=== PATIENT | female | born 1990 | race Caucasian/White ===

== ENCOUNTER 2019-03-30 12:12 | Emergency (ER) | payer SELFPAY ==
[2019-03-30] MEDS ORDERED: 0.9 % SODIUM CHLORIDE 1,000 ML BAG IV ONE (12:28)
[2019-03-30] MEDS ORDERED: ONDANSETRON HCL IV 4 MG/2 ML VIAL IV ONE (12:28)
--- NOTE | 2019-03-30 12:34 | Emergency Department Record ---
History of Present Illness - General Chief complaint: Vaginal bleeding Stated complaint: VAG BLEEDING/VOMITING Time Seen by Provider: 03/30/19 12:27 Source: Patient Mode of Arrival: Ambulatory Limitations: No limitations - History of Present Illness Initial comments: The patient is here due to a 6 hour hx of frequent nausea, vomiting, and diarrhea. She feels fatigued and weak since the vomiting started. The patient additionally has has pelvic cramping and spotting for almost a month. She just moved here from [place] and does not have a PCP. MD Complaint: Other Onset/Timin -: Hour(s) Severity: Moderate Severity scale (1-10): 1 Patient : No - Related Data Sexually active: No Previous Rx's Medication Instructions Recorded Naproxen [Naprosyn] 250 mg PO BID #14 tablet 03/30/19 Ondansetron [Zofran Odt] 4 mg SL .Q4-6H PRN #12 tab.rapdis 03/30/19 Allergies Allergy/AdvReac Type Severity Reaction Status Date / Time No Known Drug Allergies Allergy Verified 03/30/19 12:26 Travel Screening - Travel/Exposure Within Last 30 Days Have you traveled within the last 30 days?: Yes Location Detail:: recently move from [place] 6 weeks ago - Travel/Exposure Within Last Year Have you traveled outside the [place] in the last year?: No - Additonal Travel Details Have you been exposed to anyone with a communicable illness?: No - Travel Symptoms Symptom Screening: None Review of Systems Constitutional: Denies: Chills, Fever Eyes: Denies: Eye discharge ENT: Denies: Congestion Respiratory: Denies: Cough, Dyspnea Cardiovascular: Denies: Arrhythmia, Chest pain Past Medical History - SOCIAL HISTORY Smoking Status: Current every day smoker Alcohol Use: Rare Drug Use: None - RESPIRATORY Hx Respiratory Disorders: No - CARDIOVASCULAR Hx Cardio Disorders: No - NEURO Hx Neuro Disorders: No - GI Hx GI Disorders: No - Hx Genitourinary Disorders: No - ENDOCRINE Hx Endocrine Disorders: No - MUSCULOSKELETAL Hx Musculoskeletal Disorders: No - PSYCH Hx Psych Problems: No - HEMATOLOGY/ONCOLOGY Hx Hematology/Oncology Disorders: No Family Medical History Any Significant Family History?: Yes Family Hx Comment (NOT TO BE USED IN PLACE OF ITEMS BELOW): Family with PCOS. Physical Exam - General General Appearance: Alert, Oriented x3, Cooperative, No acute distress - Head Head exam: Atraumatic, Normocephalic, Normal inspection - Eye Eye exam: Normal appearance, PERRL - Neck Neck exam: Normal inspection, Full ROM. negative: Tenderness - Respiratory Respiratory exam: Normal lung sounds bilaterally. negative: Respiratory distress - Cardiovascular Cardiovascular Exam: Regular rate, Normal rhythm, Normal heart sounds - GI/Abdominal GI/Abdominal exam: Soft, Normal bowel sounds. negative: Rebound, Rigid, Tende rness - Extremities Extremities exam: Normal inspection, Full ROM, Normal capillary refill. negative: Tenderness - Neurological Neurological exam: Alert, Normal gait. negative: Abnormal gait, Motor sensory deficit - Psychiatric Psychiatric exam: negative: Anxious Course Vital Signs 03/30/19 12:17 Temperature 98.3 F Pulse Rate 132 H Respiratory 18 Rate Blood Pressure 122/75 Pulse Ox 97 - Reevaluation(s) Reevaluation #1: The patient is doing a lot better at this time. She denies any AP, nausea, or vomiting but is having some mild leg cramping. I did discuss the neg test with her and the need for Zofran for nausea. She is to see her family doctor to have the chronic vaginal bleeding evaluated further. 03/30/19 14:43 Medical Decision Making - Data Complexity MDM Data: Labs Ordered and/or Reviewed, X-Ray Ordered and/or Reviewed - Lab Data Result diagrams: 03/30/19 12:51 03/30/19 12:51 - Radiology Data Radiology results: Report reviewed (Pelvic US: Neg for any acute changes, Neg for free fluid.) Disposition Disposition: Discharge Clinical Impression: Gastroenteritis Disposition: Home, Self-Care Condition: (2) Stable Instructions: Gastroenteritis (ED) Additional Instructions: Please slowly drink fluids and then advance your diet slowly. Use the Zofran for nausea and use Naprosyn for pain. Return to the ER for any worsening issues. Prescriptions: Naproxen [Naprosyn] 250 mg PO BID #14 tablet Ondansetron [Zofran Odt] 4 mg SL .Q4-6H PRN #12 tab.rapdis PRN Reason: Nausea Forms: Patient Portal Access Time of Disposition: 14:47 Quality - Quality Measures Quality Measures: N/A - Blood Pressure Screening View Details: Yes Does Patient Have Any of the Following: No Blood Pressure Classification: Pre-Hypertensive BP Reading Systolic Measurement: 122 Diastolic Measurement: 75 Screening for High Blood Pressure: < Pre-Hypertensive BP, F/U Documented > [G8950] Pre-Hypertensive Follow-up Interventions: Referral to alternative/primary care provider.
[2019-03-30 12:57] LABS: ABSOLUTE NEUTROPHIL COUNT 13.04; HEMATOCRIT 48.9 % (35.0-47.0); HEMOGLOBIN 16.1 gm/dl (11.6-16.0); MEAN CELL VOLUME 86.4 fl (81-97); MEAN CORPUSCULAR HEMOGLOBIN 28.4 pg (27-33); MEAN CORPUSCULAR HGB CONC 32.9 g/dl (32-36); MEAN PLATELET VOLUME 9.8 fl (7.4-10.4); PLATELET COUNT 354 K/uL (130-400); RED BLOOD COUNT 5.66 M/uL (3.80-5.40); RED CELL DISTRIBUTION WIDTH 13.2 % (11.5-14.5); WHITE BLOOD COUNT W/O DIFF 13.9 K/uL (4.2-12.2)
[2019-03-30 13:05] LABS: BLOOD UREA NITROGEN 16 mg/dL (6-20); CREATININE 0.6 mg/dL (0.5-0.9); EST GLOMERULAR FILTRATION RATE > 60 mL/min
[2019-03-30 13:07] LABS: GLUCOSE,RANDOM 125 mg/dL (74-109)
[2019-03-30 13:10] LABS: ALB/GLOB RATIO 1.4 (1.1-1.8); ALBUMIN 4.6 g/dL (4.0-5.0); ALKALINE PHOSPHATASE 92 U/L (35-104); ALT/SGPT 18 U/L (<33); AST/SGOT 16 U/L (10.0-35.0)
[2019-03-30 13:15] LABS: PLATELET ESTIMATE NORMAL (NORMAL)
--- NOTE | 2019-03-30 14:38 | ULTRASOUND REPORT ---
EXAMINATION: Complete Transabdominal and transvaginal Ultrasound of the Pelvis EXAM DATE: 03/30/2019 1:56 PM TECHNIQUE: Transabdominal and transvaginal pelvic ultrasound obtained. INDICATION: pelvic pain and bleeding. Pelvic pain x1 week/irregular bleeding x3.5 weeks. History of i rregular periods. Nausea. Leukocytosis. Negative test. COMPARISON: None. Transabdominal Ultrasound of the Pelvis Findings: 1. Uterus Size: The uterus measures 6.4 x 3.1 x 4.2 cm in dimension (length x AP x width). 2. Endometrium: The visualized endometrium measures 6 mm in thickness. 3. Myometrium: The myometrium images poorly transabdominally. 4. Ovaries: The right ovary measures 3.3 x 2.0 x 2.0 cm in dimension. The left ovary measures 2.9 x 1.6 x 2.3 cm in dimension. 5. Bilateral Adnexa: No adnexal masses or abnormal cysts are demonstrated. 6. Other Findings: None. Transvaginal Ultrasound of the Pelvis Findings: 1. Uterus Size: Uterus measures 6.0 x 3.3 x 3.8 cm. 2. Endometrium: The endometrium measures 5 mm in thickness. The endometrial stripe appears normal an d there are multiple nabothian cysts. 3. Myometrium: Normal. 4. Ovaries: The right ovary measures 3.9 x 1.7 x 2.9 cm. The left ovary measures 3.5 x 2.1 x 3.2 cm. It is noted that the ovarian volumes are greater than 10 cc which can be seen in the setting of PCOS and clinical correlation is recommended. 5. Other Findings: There are multiple small follicles and there is color Doppler and duplex blood f low to the ovaries. There is no free pelvic fluid. Impression: The endometrium measures 5 mm without specific abnormality seen. No acute sonographic abnormality of the ovaries with color Doppler and duplex blood flow. The volume of the ovaries are greater than 10 cc which can be seen in the setting of PCOS and clinica l correlation is recommended. No free pelvic fluid. Dictated by: Saurav Shelton MD on 03/30/2019 2:22 PM. .
== END 2019-03-30 14:53 | disposition home or self-care (01) ==
LOC: ER 12:12
DX: K52.9 Noninfective gastroenteritis and colitis, unspecified (principal); R11.2 Nausea with vomiting, unspecified; R53.83 Other fatigue; R10.2 Pelvic and perineal pain; F17.210 Nicotine dependence, cigarettes, uncomplicated
CPT/HCPCS: 76830; 76856; 80053; 83690; 84703; 85027; 96374; 99284; J2405; J7030